=== PATIENT | female | born 1940 ===

== ENCOUNTER → 2018-06-11 | Outpatient (CLI) | payer MEDICARE, BC ==
[~2018-06-11] MED LIST: AMLO-111 PO; ATEN-1 PO; CARB15DR72 OP; MINE3.5O20 OP; MULT-1335 PO; MULT-991 PO; OLME40TA28 PO; RIVA15TA PO
== END ==
LOC: LAB 11:13
PROVIDERS: ATTEND Nurse Practitioner
DX: L57.0 Actinic keratosis (principal)
CPT/HCPCS: 88305